=== PATIENT | female | born 1975 | race Hispanic/Latino ===

== ENCOUNTER 2018-07-08 10:22 | Outpatient (CLI) | payer OTHER | END 2018-07-08 10:23 | disposition home or self-care (01) | LOC: C.LAB 10:22 ==

== ENCOUNTER 2018-07-19 08:29 | Outpatient (CLI) | payer OTHER | END 2018-07-19 08:30 | disposition home or self-care (01) | LOC: C.PAT 08:30 | DX: R13.14 Dysphagia, pharyngoesophageal phase (principal); J38.1 Polyp of vocal cord and larynx ==

== ENCOUNTER 2018-07-26 09:34 | Outpatient (CLI) | payer OTHER | END 2018-07-26 09:35 | disposition home or self-care (01) | LOC: C.RADH 09:34 | DX: R13.14 Dysphagia, pharyngoesophageal phase (principal) ==

== ENCOUNTER 2018-08-02 09:53 | Outpatient (CLI) | payer OTHER | END 2018-08-02 09:54 | disposition home or self-care (01) | LOC: C.USIC 09:53 ==

== ENCOUNTER 2018-08-06 07:46 | Day surgery (SDC) | payer OTHER ==
[2015-06-05 10:19] VITALS: BMI 32.5
[~2018-08-06 07:46] MED LIST: ceFAZolin 1 gm in NS 2 GM/200 ML BAG IVPB ONE
[2018-08-06] MEDS ORDERED: Acetaminophen-Codeine 300/30 mg Tab PO PRN (08:36)
[2018-08-06] MEDS ORDERED: Dextrose 5%/0.45% NS 1,000 ML IV SCH (08:45)
[2018-08-06] MEDS ORDERED: (Novolin R) Insulin Human Regular 100 units/ml vial IVP ONE (10:05)
[2018-08-06] MEDS ORDERED: Propofol 10 mg/ml Inj (20 ML) ONE ×2 (11:19→11:30)
[2018-08-06] MEDS ORDERED: Midazolam 2 MG/2 ML VIAL ONE (11:19)
[2018-08-06] MEDS ORDERED: HYDROmorphone 0.5 mg/0.5 ml ISec IVP PRN (12:11)
[2018-08-06 13:54] VITALS: O2SAT 95
[2018-08-06 14:10] VITALS: BP 134/68; PULSE 83; RESP 18; TEMP 97.8
--- NOTE | 2018-08-06 22:24 | OP ---
PROCEDURE DATE: 08/06/2018 PREOPERATIVE DIAGNOSIS: Left vocal cord polyp. POSTOPERATIVE DIAGNOSIS: Left vocal cord polyp. PROCEDURE: Micro-direct laryngoscopy with removal of left vocal cord polyp. SURGEON: Johnathon Torres MD SIGNIFICANT FINDINGS: Left vocal cord polyp. DESCRIPTION OF PROCEDURE: The patient was brought into room, placed in supine position. Anesthesia initiated through an ET tube. Shoulder roll was placed, neck extended. The patient was draped in the usual manner. Tooth guard was placed over the upper teeth in order to protect them and removed at the end of the case. Direct laryngoscope was inserted into the oral cavity, passed to oropharynx and hypopharynx. The pharyngeal waldrop, base of tongue, vallecula, epiglottis, AE folds, false cords, true cords, arytenoids were brought into view. The left vocal cord polyp was noted. The direct laryngoscope was suspended on the [place] leasing examiner usual manner while viewing the left vocal cord polyp. Microscope was brought into position to view the left vocal cord polyp. The polyp was retracted medially, and scissors were used to dissect the vocal cord polyp off the mucosa preserving as much mucosa as possible. Bleeding was controlled using cold water irrigation. The microscope was taken out of position. The direct laryngoscope was taken off suspension and removed. The patient was taken off anesthesia and taken to recovery room in stable manner. Johnathon Torres MD
== END 2018-08-06 14:15 | disposition home or self-care (01) ==
LOC: C.SDS 07:46
PROVIDERS: ATTEND Otolaryngology
DX: J38.1 Polyp of vocal cord and larynx (principal)
CPT/HCPCS: 31541; 82948; 88305; J0690; J1170; J2250; J2704; J3010; J7040